=== PATIENT | female | born 1960 | race Caucasian/White ===

== ENCOUNTER 2018-03-28 09:12 | Day surgery (SDC) | payer BC ==
[2018-03-25 11:07] VITALS: BMI 43.0
[~2018-03-28 09:12] MED LIST: BUPIVACAINE HCL/PF 0.25% (2.5MG/ML) 10 ML VIAL IJ ONE; TRIAMCINOLONE ACET 40MG/1ML VIAL IM ONE
[2018-03-28] MEDS ORDERED: BUPIVACAINE HCL 0.25% 125 MG/50 ML VIAL ONE (10:30)
[2018-03-28] MEDS ORDERED: TRIAMCINOLONE ACET 40MG/1ML VIAL ONE ×2 (10:30→12:21)
[2018-03-28] MEDS ORDERED: MIDAZOLAM HCL 2 MG/2 ML SINGLE DOSE VIAL ONE ×2 (10:32→11:43)
[2018-03-28] MEDS ORDERED: fentaNYL CITRATE 250 MCG/5 ML VIAL ONE (10:32)
[2018-03-28] MEDS ORDERED: PROPOFOL 20 ML ONE (10:32)
[2018-03-28] MEDS ORDERED: LIDOCAINE HCL/PF 2% SDV 5ML VIAL ONE (10:33)
[2018-03-28] MEDS ORDERED: LIDOCAINE HCL 2% JELLY (5 ML/TUBE) ONE (10:33)
[2018-03-28] MEDS ORDERED: DEXAMETHASONE SOD PHOSPHATE 4 MG/1 ML VIAL ONE (10:33)
[2018-03-28] MEDS ORDERED: ONDANSETRON 4 MG/2 ML VIAL ONE ×2 (10:33→12:49)
[2018-03-28] MEDS ORDERED: ceFAZolin SODIUM 1 GM VIAL ONE (10:33)
[2018-03-28] MEDS ORDERED: KETOROLAC TROMETHAMINE 30 MG/1 ML VIAL ONE (10:33)
[2018-03-28] MEDS ORDERED: BUPIVACAINE 0.75% IN DEXTROSE/PF 2ML AMPULE NR ONE (11:17)
[2018-03-28] MEDS ORDERED: BUPIVACAINE HCL/PF 0.25% (2.5MG/ML) 10 ML VIAL IJ ONE (12:19)
[2018-03-28] MEDS ORDERED: TRIAMCINOLONE ACET 40MG/1ML VIAL IM ONE (12:19)
[2018-03-28] MEDS ORDERED: ALBUTEROL SO4 8 GM HFA INHALER IH PRN (12:36)
--- NOTE | 2018-03-28 12:41 | OP ---
Operative Note - Note: Operative Date: 03/28/18 Pre-Operative Diagnosis: Left knee medial meniscus tear Operation: 1. Surgical arthroscopy left knee. 2. Partial medial meniscectomy. 3. Medial femoral condyle chondroplasty Findings: 1. Partial medial meniscus tear (posterior horn) 2. Grade 3 chondromalacia medial femoral condyle, medial tibial plateau, lateral tibial plateau Post-Operative Diagnosis: Same as Pre-op Surgeon: Geremias Haynes Sleeping Car Service Attendant: Lorne Haynes Anesthesiologist/DISPENSING AND MEASURING OPTICIAN: Artie Tobias Anesthesia: General Estimated Blood Loss (mls): 0 Fluid Volume Replaced (mls): 500 Operative Report Dictated: Yes
--- NOTE | 2018-03-28 12:44 | PN ---
Progress Note (short form) - Note Progress Note: 58F s/p surgical arthroscopy left knee w/partial medial meniscectomy & MFC chondroplasty POD #0. -Pain control. -Incentive spirometry. -PT/OT/Rehab if needed. -WBAT LLE. -Crutch training. -Keep dressing clean & dry; remove dressing on Saturday and cover suture sites with water-proof Band-Aid. -Percocet ordered to pharmacy for analgesia. -Discharge home: f/u [facility] [place] [facility] in 1 week; call for appointment: . Geremias Haynes MD (Orthopaedic Surgery).
[2018-03-28] MEDS ORDERED: ONDANSETRON 4 MG/2 ML VIAL IVPUSH ONE (12:48)
[2018-03-28] MEDS ORDERED: ONDANSETRON 4 MG/2 ML VIAL IVPUSH PRN (12:57)
[2018-03-28] MEDS ORDERED: oxyCODONE HCL 5 MG TABLET PO PRN ×2 (12:57)
[2018-03-28] MEDS ORDERED: LACTATED RINGERS SOLUTION 1,000 ML IV SCH (13:00)
--- NOTE | 2018-03-28 13:51 | OP ---
DATE OF OPERATION: 03/28/2018 PREOPERATIVE DIAGNOSIS: Left knee medial meniscus tear. POSTOPERATIVE DIAGNOSES: 1. Left knee medial meniscus tear. 2. Grade 3 chondromalacia: a. Medial femoral condyle. b. Medial tibial plateau. c. Lateral tibial plateau. SURGICAL PROCEDURES PERFORMED: 1. Surgical arthroscopy of the left knee. 2. Partial medial meniscectomy. 3. Medial femoral condyle chondroplasty. ESTIMATED BLOOD LOSS: 0 mL. TOURNIQUET PRESSURE: 400 mmHg. TOURNIQUET TIME: 31 minutes. FLUID VOLUME REPLACED: 500 mL. I will elaborate on the body of this dictation via CURRENT. MD CRISTIANA Petty/[id number]
[2018-03-28] MEDS ORDERED: oxyCODONE HCL 5 MG TABLET ONE (15:25)
[2018-03-28] MEDS ORDERED: oxyCODONE HCL 5 MG TABLET PO ONE (15:25)
[2018-03-28 15:49] VITALS: BP 138/75; PULSE 73; TEMP 97.8
[2018-03-28] MEDS ORDERED: PATIENT'S OWN MEDICATION (NON-FORMULARY) (Mometasone/Formoterol [Dulera 100 Mcg/5 Mcg Inha IH SCH (22:00)
[2018-03-29] MEDS ORDERED: CIMETIDINE 400 MG PO SCH (10:00)
[2018-03-29] MEDS ORDERED: FOLIC ACID 1 MG TABLET (FP) PO SCH (10:00)
== END 2018-03-28 15:40 | disposition home or self-care (01) ==
LOC: FASU 09:12
PROVIDERS: ATTEND Orthopaedic Surgery Adult Reconstructive Orthopaedic Surgery
PROC: 0SBD4ZZ Excision of Left Knee Joint, Percutaneous Endoscopic Approach (ICD-10-PCS; principal; 2018-03-28 11:00)
DX: S83.242A Other tear of medial meniscus, current injury, left knee, initial encounter (principal); M94.20 Chondromalacia, unspecified site